=== PATIENT | female | born 1995 | race Caucasian/White ===

== ENCOUNTER 2023-10-03 15:30 | Outpatient (NON) | payer OTHER, SELFPAY | END 2023-10-03 15:31 | disposition home or self-care (01) | LOC: ANHGOSHLAB 15:31 | PROVIDERS: PCP Family Medicine; Visit Provider Student in an Organized Health Care Education/Training Program | DX: N39.0 Urinary tract infection, site not specified (principal) | CPT/HCPCS: 87077; 87086; 87088; 87186 ==

== ENCOUNTER 2023-12-22 08:59 | Emergency (ER) | payer OTHER, SELFPAY ==
--- NOTE | 2023-12-22 09:02 | ED_ITS ---
HPI - General Adult General Chief complaint: Skin/Abscess/Foreign Body Stated complaint: Lower Back Pain Time Seen by Provider: 12/22/23 09:02 Source: patient, RN notes reviewed and old records reviewed Mode of arrival: ambulatory Limitations: no limitations History of Present Illness HPI narrative: 28-year-old female to [facility] with complaint of sore area near her tailbone for 6 days. Patient states that she wears long underwear and that she believes she wore appear that were too tight for her wedding last Monday. Patient states she 1st noticed the wound on Monday. Patient states she has been treat ing it with antibiotic ointment. Patient states recently began draining. Patient denies any prior history, allergies, fever, pain. Patient resting comfortably in exam room. Related Data Allergies Allergy/AdvReac Type Severity Reaction Status Date / Time No Known Allergies Allergy Verified 12/22/23 09:13 Review of Systems Review of Systems: All systems reviewed & are unremarkable except as noted in HPI and below Constitutional: Constitutional: Reports no additional constitutional complaints Eyes: Eyes: Reports no additional eye complaints ENT: Reports system reviewed and no additional complaints, except as documented Cardiovascular: Cardiovascular: Reports no additional cardiovascular complaints, Denies chest pain and Denies dyspnea Respiratory: Respiratory: Reports no additional respiratory complaints, Denies cough and Denies dyspnea Musculoskeletal: Musculoskeletal: Reports no additional musculoskeletal complaints Integumentary/Breasts: Skin/Breast: Reports as per HPI and Reports sores Neurologic: Reports system reviewed and no additional complaints, except as documented Psychiatric: Psychiatric: Reports no additional psychiatric complaints [facility] Past Medical History Medical History Acne vulgaris Attention-deficit hyperactivity disorder, unspecified type Constipation Family History Family History Grandparent Diabetes mellitus Family history of glaucoma Hypertension Family history of cardiovascular disease Family history of malignant melanoma Social History Social History Smoking status: Never smoker Lack of Transportation: No Lack of Food: Never True Current Housing: I Have Housing Concerned About Future Housing: No Difficulty Paying Gas/Electric Bills: No Difficulty Paying for Meds: No Currently Unemployed: No Education: Associate Degree Comments At the time of my signature, I reviewed and agree with the nursing past medical, surgical, social, and family history. There is no relevant family history pertinent to the patient complaint. Exam Const: General: cooperative, healthy appearing, comfortable, no acute distress, alert and well nourished Nutritional Appearance: well nourished Orientation/consciousness: patient oriented x3 Limitations: no limitations HENMT: Head: normal to inspection Ears: external ears normal Face/Nose/Sinus: Normal external nose present, Normal nares present, normal facial exam, No erythema and No edema Face and sinus: normal facial exam, no erythema and no edema Mouth: Yes Normal oral and palatal mucosa present Eyes: General: appearance normal, both eyes and all related structures Neck: Neck: normal visual inspection, full ROM and no meningeal signs Chest: Chest palpation & inspection: normal inspection of the chest Resp: Effort & Inspection: normal respiratory effort and able to speak in complete sentences Cardio: Jugular venous distension: no JVD Rate: regular rate Back/Spine/Pelvis: Cervical Spine: cervical ROM normal Skin: General skin exam: normal color, erythema and lesion Other: 1cm Erythematous, mildly edematous lesi on proximal right gluteal cleft. central opening with scant purulent drainage present. Neuro: General: patient oriented x3, gait normal, moves all extremities and no meningeal signs Speech: normal speech Gait exam (Neuro): Normal gait present Extrem: General: normal to inspection, full ROM and capillary refill normal Psych: Appearance: grossly normal and well kempt Course Course Emergency Course: Some parts of this dictation were generated by voice recognition software and may contain typographical and/or grammatical inaccuracies. Level of Care: Express Care Visit Vital Signs Vital signs: Vital Signs Temperature 36.6 C 12/22/23 09:07 Pulse Rate 85 12/22/23 09:07 Respiratory Rate 16 12/22/23 09:07 Blood Pressure 124/88 12/22/23 09:07 Pulse Oximetry 100 12/22/23 09:07 Temperature 36.6 C 12/22/23 09:07 Pulse Rate 85 12/22/23 09:07 Respiratory Rate 16 12/22/23 09:07 Blood Pressure 124/88 12/22/23 09:07 Pulse Oximetry 100 12/22/23 09:07 reviewed Medical Decision Making MDM Narrative Medical decision making narrative: 28-year-old female to [facility] with complaint of sore area near her tailbone for 6 days. Patient states that she wears long underwear and that she believes she wore appear that were too tight for her wedding last Monday. Patient states she 1st noticed the wound on Monday. Patient states she has been treating it with antibiotic ointment. Patient states recently began draining. Patient denies any prior history, allergies, fever, pain. Patient resting comfortably in exam room. Patient is sitting comfortably in exam room nontoxic in appearance. On exam, 1cm erythematous, mildly edematous lesion proximal right gluteal cleft. central opening with scant purulent drainage present. Consistent with abscess Patient appropriate for outpatient treatment and follow-up. Discharge instructions reviewed with patient, as well as provided in writing per nursing staff. The instructions also include specific and strict return/GO TO THE ER as well as f/u information. All questions have been answered, and the patient deny any further questions with discharge and discharge plan. Some parts of this dictation were generated by voice recognition software and m ay contain typographical and/or grammatical inaccuracies. Differential Diagnosis Differential Diagnosis: abscess, insect bite, contact dermatitis, cellulitis Vital Signs Vital Signs: Vital Signs Temperature 36.6 C 12/22/23 09:07 Pulse Rate 85 12/22/23 09:07 Respiratory Rate 16 12/22/23 09:07 Blood Pressure 124/88 12/22/23 09:07 Pulse Oximetry 100 12/22/23 09:07 Temperature 36.6 C 12/22/23 09:07 Pulse Rate 85 12/22/23 09:07 Respiratory Rate 16 12/22/23 09:07 Blood Pressure 124/88 12/22/23 09:07 Pulse Oximetry 100 12/22/23 09:07 Discharge Plan Discharge Clinical Impression: Abscess of gluteal cleft Patient Disposition: Home, Self-Care Condition: Stable Instructions: Abscess (ED) Additional Instructions: please review attached instructions regarding abscess and implement suggestions as tolerated please finish a tire course of antibiotic treatment as discussed, please wear a different style of underwear for the next 10-14 days. if symptoms recur, please follow-up with your primary care provider for further evaluation and treatment for new or worsening symptoms please go directly to the emergency department Prescriptions: New cephalexin 500 mg capsule 500 mg PO Q12H Qty: 14 0RF No Action norethindrone ac-eth estradiol 1-20 mg-mcg tablet See Rx Instructions .ROUTE .COMPLEX Qty: 84 1RF Dose Instruction: TAKE 1 TABLET BY MOUTH DAILY(WITH PLACEBO) Rx Instructions: TAKE 1 TABLET BY MOUTH DAILY Follow-up/Referrals: Nadege Alvarez MD [Primary Care Provider] -
[2023-12-22 09:07] VITALS: BP 124/88; PULSE 85; RESP 16; TEMP 36.6; O2SAT 100
== END 2023-12-22 09:22 | disposition home or self-care (01) ==
PROVIDERS: Emergency Provider Nurse Practitioner Family; PCP Family Medicine
DX: L02.31 Cutaneous abscess of buttock (principal)
CPT/HCPCS: 99213; G0463

== ENCOUNTER 2024-09-24 09:24 | Outpatient (CLI) | payer OTHER, SELFPAY ==
--- NOTE | ~2024-09-24 | US_ITS ---
Abdominal Sonogram: Real-time sonographic imaging of the abdomen was performed. Clinical History: Abdominal pain Findings: The liver appears normal with no evidence of mass lesion or bile duct dilatation. Main por miya vein demonstrates normal direction of flow. The spleen is normal in size without evidence of foca l lesion. The gallbladder is well distended, and demonstrates 2 mm gallbladder wall polyp. The commo n bile duct measures 3 mm. The visualized pancreas, aorta, and IVC are unremarkable. The right kidn ey measures 10.1 cm in length and the left kidney measures 10.5 cm. There is no hydronephrosis or re nal calculus. Impression: 2 mm gallbladder wall polyp. Reviewed, dictated and finalized at location . Impression: 2 mm gallbladder wall polyp.
--- NOTE | ~2024-09-24 | US_ITS ---
Pelvic ultrasound. Clinical History: Pain Technique: Realtime transvaginal scanning of the pelvis was performed. Color flow Doppler and Doppler spectral analysis were performed. Findings: The uterus is anteverted. The endometrial stripe has a thickness of 4 mm. No focal mass is identified. The right ovary measures 2.2 x 1.4 x 2.3 cm. No significant right ovarian or adnexal mass is seen. The left ovary measures 3.2 x 2.7 x 1.3 cm. No significant left ovarian or adnexal mass is seen. Axial FLAIR flow present in both ovaries on Doppler spectral analysis. There is no evidence of free fluid in the cul de sac. Impression: Unremarkable pelvic ultrasound. Reviewed, dictated and finalized at location . Impression: Unremarkable pelvic ultrasound.
== END 2024-09-24 09:25 | disposition home or self-care (01) ==
LOC: MICIMG 09:25
PROVIDERS: PCP Family Medicine; Visit Provider Student in an Organized Health Care Education/Training Program
DX: K82.4 Cholesterolosis of gallbladder (principal)
CPT/HCPCS: 76700; 76830

== ENCOUNTER 2025-01-07 07:19 | Outpatient (CLI) | payer OTHER, SELFPAY ==
[2025-01-07 08:17] LABS: Hematocrit 38.3 % (37.0-47.0); Hemoglobin 13.3 g/dL (12.0-15.0); Immature Granulocyte Percent A 0.3 % (0-0.5); Lymphocytes Absolute Auto 2.35 K/mm3 (0.9-3.2); Mean Corpuscular HGB Conc 34.7 g/dl (32-36); Mean Corpuscular Hemoglobin 32.4 pg (26-34); Mean Corpuscular Volume 93.2 fl (80-100); Nucleated Red Blood Cells Absolute Auto 0.000 K/mm3 (0.0-0.012); Nucleated Red Blood Cells Perc 0.0 % (0.0-0.2); Platelet Count Result 204 k/mm3 (150-375); Red Blood Count 4.11 M/mm3 (4.2-5.4); White Blood Count 7.0 K/mm3 (4.5-10.0)
[2025-01-07 08:42] LABS: Alanine Aminotransferase 12 U/L (6-35); Albumin Level 4.5 g/dL (3.5-5.1); Alkaline Phosphatase 60 U/L (38-126); Anion Gap 11 mmol/L (4-12); Aspartate Amino Transferase 26 U/L (14-36); Bilirubin,Total 0.6 mg/dL (0.2-1.3); Blood Urea Nitrogen 21 mg/dL (7-17); Calcium 9.1 mg/dL (8.4-10.2); Carbon Dioxide 22 mmol/L (22-30); Chloride 102 mmol/L (98-107); Cholesterol 184 mg/dL (0-200); Estimated Glomerular Filt Rate > 60; Glucose 87 mg/dL (65-110); HDL Direct 78 mg/dL; Potassium 3.5 mmol/L (3.4-5.0); Sodium 135 mmol/L (137-145); Total Protein 7.5 g/dL (6.3-8.2); Triglycerides 181 mg/dL (<150)
[2025-01-07 09:17] LABS: Thyroid Stimulating Hormone 2.920 uIU/mL (0.465-4.680)
== END 2025-01-07 07:20 | disposition home or self-care (01) ==
LOC: ANHLAB 07:20
PROVIDERS: PCP Family Medicine; Visit Provider Student in an Organized Health Care Education/Training Program
DX: Z00.00 Encounter for general adult medical examination without abnormal findings (principal); R68.89 Other general symptoms and signs; Z13.220 Encounter for screening for lipoid disorders; Z13.29 Encounter for screening for other suspected endocrine disorder; Z13.0 Encounter for screening for diseases of the blood and blood-forming organs and certain disorders involving the immune mechanism
CPT/HCPCS: 36415; 80053; 80061; 84443; 85025